=== PATIENT | female | born 1985 | race African-American/Black ===

== ENCOUNTER 2022-08-19 14:11 | Emergency (ER) | payer MEDICAID ==
[~2022-08-19] VITALS: Ht 162.6 cm; Wt 64.5 kg
[2022-08-19 14:37] VITALS: BP 100/57
== END 2022-08-19 16:47 | disposition home or self-care (01) ==
LOC: ER 14:11
DX: F19.10 Other psychoactive substance abuse, uncomplicated (principal); Z11.1 Encounter for screening for respiratory tuberculosis; Z98.890 Other specified postprocedural states
CPT/HCPCS: 71046; 81025; 99283

== ENCOUNTER 2022-11-13 23:07 | Emergency (ER) | payer MEDICAID ==
[~2022-11-13] VITALS: Ht 162.6 cm; Wt 65.0 kg
[~2022-11-13 23:07] MED LIST: ACET-2708 MT; AMOX1TAB16 MT
[2022-11-13 23:13] VITALS: BP 104/38; PULSE 79; RESP 18; TEMP 97.8; O2SAT 98
[2022-11-13] MEDS ORDERED: AMOX1TAB16 MT (23:41)
[2022-11-13] MEDS ORDERED: TOPUD MT (23:41)
[2022-11-13] MEDS ORDERED: NAPR500T7 MT (23:41)
[2022-11-13] MEDS ORDERED: KETOROLAC 30MG/ML VIAL IM ONE (23:45)
== END 2022-11-13 23:53 | disposition home or self-care (01) ==
LOC: ER 23:07
DX: K04.7 Periapical abscess without sinus (principal); R68.84 Jaw pain; Z98.890 Other specified postprocedural states
CPT/HCPCS: 99283; 81025; J1885; 99282